=== PATIENT | female | born 1955 | race Hispanic/Latino ===

== ENCOUNTER 2019-02-12 06:54 | Observation (INO) | payer MEDICARE ==
[2019-02-06 11:32] LABS: BASOPHILS # (AUTO) 0.1 (0.0-0.1); EOSINOPHILS # (AUTO) 0.9 (0.0-0.4); EOSINOPHILS % 12.6 % (0.0-6.0); HEMATOCRIT 39.6 % (34.2-44.1); HEMOGLOBIN 12.6 g/dL (12.0-16.0); LYMPHOCYTES % 27.5 % (18.0-39.1); MEAN CORPUSCULAR HEMOGLOBIN 26.5 pg (28-32); MEAN CORPUSCULAR HGB CONC 31.8 g/dL (31-35); MEAN CORPUSCULAR VOLUME 83.4 fL (81-99); MONOCYTES # (AUTO) 0.9 (0.2-0.8); MONOCYTES % 11.9 % (4.4-11.3); NEUTROPHILS # (AUTO) 3.3 (2.1-6.9); NEUTROPHILS % 46.4 % (38.7-80.0); PLATELET COUNT 322 x10e3/uL (140-360); RED BLOOD COUNT 4.75 x10e6/uL (3.6-5.1); RED CELL DISTRIBUTION WIDTH 13.8 % (11.7-14.4)
[2019-02-06 11:55] LABS: ANION GAP 11.8 mmol/L (8-16); BLOOD UREA NITROGEN 19 mg/dL (7-26); BUN/CREATININE RATIO 31 (6-25); CALCIUM 9.1 mg/dL (8.4-10.2); CARBON DIOXIDE 27 mmol/L (22-29); CHLORIDE 104 mmol/L (98-107); CREATININE, SERUM 0.61 mg/dL (0.57-1.11); EST GLOMERULAR FILTRATION RATE > 60 ML/MIN (60-); GLUCOSE 85 mg/dL (74-118); POTASSIUM 3.8 mmol/L (3.5-5.1); SODIUM 139 mmol/L (136-145)
--- NOTE | 2019-02-06 13:05 | Diagnostic Imaging Report ---
EXAMINATION: CHEST 2 VIEWS INDICATION: Pre-operative COMPARISON: None FINDINGS: TUBES and LINES: None. LUNGS: The lungs are well-inflated. Mild patchy opacity in the retrocardiac region may represent superimposition of hiatal hernia. PLEURA: No pleural effusion or pneumothorax. HEART AND MEDIASTINUM: The cardiomediastinal silhouette is normal in size and contour. BONES AND SOFT TISSUES: No acute fracture or dislocation. UPPER ABDOMEN: No free air under the diaphragm. Hiatal hernia. IMPRESSION: No focal consolidation or pulmonary edema. Patchy opacity in the left retrocardiac area most likely represents superimposition of hiatal hernia. Signed by: Gilberto Joyner MD on 02/06/2019 1:02 PM
[~2019-02-12] VITALS: Ht 157.5 cm; Wt 57.2 kg
[~2019-02-12 06:54] MED LIST: ALENDRONATE SOD70 MG PO; ATENOLOL50 MG PO; CETIRIZINE HCL5 M1 PO; GABAPENTIN300 MG PO; HYDROCHLOROTHIA25 MG PO; METHOTREXATE2.5 MG PO; OMEPRAZOLE20 MG PO; PREDNISONE5 MG PO; SERTRALINE HCL50 MG PO; VITAMIN D250000 UNIT PO
--- OUTSIDE RECORDS SUMMARY | 2019-02-12 06:57 | XMS REPORT | Summary of Care ---
Author Author [facility] General Surgery [facility] Organization [facility] General Surgery [facility] Address Unknown Phone Unavailable Encounter HQ Encntr_alias(FIN) [id number] Date(s): 01/10/19 - 01/10/19 [facility] General Surgery [facility] [address] [place] [address]- [phone] Attending Physician: Norberto Monet MD Vital Signs No data available for this section Problem List No data available for this section Allergies, Adverse Reactions, Alerts No data available for this section Medications No data available for this section Results No data available for this section Immunizations No data available for this section Procedures No data available for this section Social History No data available for this section Assessment and Plan No data available for this section
--- OUTSIDE RECORDS SUMMARY | 2019-02-12 06:57 | XMS REPORT | Summary of Care ---
Author Author [facility] Organization [facility] Address Unknown Phone Unavailable Encounter HQ Encntr_alias(FIN) [id number] Date(s): 11/30/18 - 11/30/18 [facility] [address] [place] [address]- Discharge Disposition: Home or Self Care Attending Physician: Jose E Silva MD Referring Physician: Jose E Silva MD Vital Signs No data available for [...]
--- OUTSIDE RECORDS SUMMARY | 2019-02-12 06:57 | XMS REPORT | Continuity of Care Document ---
Author Author [facility] Organization [facility] Address Unknown Phone Unavailable Care Team Providers Care Cabana Attendant Name Role Phone [employer] Unavailable Unavailable Problems Problem Status Onset Date Classification Date Reported Comments Source Z12.31 ENCOUNTER FOR SCREENING MAMMOGRAM Active 11/21/2018 [facility] Essential hypertension Active Problem 12/20/2018 Elvis Oden Rheumatoid arthritis involving multiple sites, unspecified rheumatoid factor presence Active Diagnosis 12/20/2018 Elvis Oden Right foot pain Active Diagnosis 09/04/2018 Elvis Oden Encounter to establish care Active Diagnosis 09/04/2018 Elvis Oden Osteoporosis screening Active Diagnosis 09/04/2018 Elvis Oden Frequent urination Active Diagnosis 09/04/2018 Elvis Oden Breast cancer screening Active Diagnosis 09/04/2018 Elvis Oden Dizziness Active Diagnosis 12/20/2018 Elvis Oden Age-related osteoporosis with current pathological fracture with routine healing, subsequent encounter Active Diagnosis 12/20/2018 Elvis Oden Screen for colon cancer Active Problem 12/20/2018 Elvis Oden Gastroesophageal reflux disease without esophagitis Active Problem 12/20/2018 Elvis Oden Age-related osteoporosis without current pathological fracture Active Problem 12/20/2018 Elvis Oden Screening for breast cancer Active Problem 12/20/2018 Elvis Oden Influenza A Active Diagnosis 10/31/2018 Elvis Oden Acute cystitis without hematuria Active Diagnosis 09/14/2018 Elvis Oden Medications Medication Details Route Status Patient Instructions Ordering Provider Order Date Source Alendronate Sodium 1 tablet Orally Active 70 MG Orally Once a week [facility] 05/18/2019 Elvis Oden Methotrexate 8 tablets Orally Active 2.5 MG Orally Weekly [facility] Elvis Oden Iron not defined NA Active [facility] Omeprazole 2 capsule Orally Active 20 MG Orally Once a day [facility] Elvis Jeffrey Atenolol 1 tablet Orally Active 50 MG Orally Once a day [facility] Ibuprofen 1 tablet with food or milk as needed Orally Active 800 MG Orally every 8 hrs as needed for pain [facility] Folic Acid 2 tablet Orally Active 1 MG Orally Once a day [facility] Sertraline HCl 1 tablet Orally Active 50 MG Orally Once a day [facility] Hydrochlorothiazide 1 tablet in the morning Orally Active 25 MG Orally Once a day [facility] PredniSONE 1 tablet Orally Active 5 MG Orally Every other day [facility] Benzonatate 1 capsule Orally Active 200 MG Orally Three times a day [facility] Ciprofloxacin HCl 1 tablet Orally Active 500 MG Orally Twice a day [facility] Tamiflu 1 capsule Orally Active 75 MG Orally Twice a day [facility] Alendronate Sodium 1 tablet Orally Active 70 MG Orally Once a week [facility] PredniSONE 1 tablet Orally Active 5 MG Orally Every other day [facility] Folic Acid 2 tablet Orally Active 1 MG Orally Once a day [facility] Omeprazole 2 capsule Orally Active 20 MG Orally Once a day [facility] Methotrexate 8 tablets Orally Active 2.5 MG Orally Weekly [facility] Alendronate Sodium 1 tablet Orally Active 70 MG Orally Once a week [facility] Ibuprofen 1 tablet with food or milk as needed Orally Active 800 MG Orally every 8 hrs as needed for pain [facility] Allergies, Adverse Reactions, Alerts Substance Category Reaction Severity Reaction type Status Date Reported Comments Source PNC Adverse Reaction Info Not Available Adverse Reaction Active 12/12/2018 [facility] Immunizations No Data Provided for This Section Results No Data Provided for This Section Pathology Reports No Data Provided for This Section Diagnostic Reports Report Value Date Source Breast Mammo Scrn JULES incl CAD MA BILATERAL DIGITAL SCREENING MAMMOGRAM WITH CAD: 11/30/2018 CLINICAL: /Routine. Current study was evaluated with a Computer Aided Detection (CAD) system. COMPARISON:Comparison is made to exams dated: 07/26/2017 mammogram, 07/25/2016 mammogram, 12/11/2014 mammogram, and 06/25/2013 mammogram. TECHNIQUE: Mammographic views were obtained using digital acquisition. [employer] Version 1.3 was utilized for computer aided detection. FINDINGS: The tissue of both breasts is heterogeneously dense, which could obscure detection of small masses. There are stable benign appearing densities in both breasts. No significant masses, calcifications, or other findings are seen in either breast. There has been no significant interval change. IMPRESSION: BENIGN RECOMMENDATION:There is no mammographic evidence of malignancy. A 1 year screening mammogram is recommended.(12/01/2019) This exam was interpreted at [id number] for [facility] Breast [place]. Carlyn Davis M.D. ap/penrad:12/11/2018 10:36:00 Robot Technician(s): Char Wagner, [facility] letter sent: BI-RADS 1/2 Dense Mammogram BI-RADS: 2 Benign 11/30/2018 [facility] Bone Density Scan Study: Bone Density Scan Clinical Indication: Osteoporosis screening; Images of the axial lumbar spine and left hip have been performed using [email or web address] Discovery SL scanner. COMPARISON: None FINDINGS: The left hip bone mineral density is 92% of the peak reference bone mass with a T-score of -0.5. Left hip BMD is 0.889 g/cm2. Left femoral neck BMD is 0.727 g/cm2 and T-score of -1.2. The axial lumbar bone mineral density is 88% of the peak reference bone mass with a T-score of -1.2. Axial lumbar average BMD is 0.918 g/cm2. 10 year fracture risk without prior fracture with prior fracture Major osteoporotic fracture 4.4% 7.4% Hip fracture 0.3% 0.6% IMPRESSION: 1. Osteopenia of the left femoral neck. 2. Normal bone mineral density of the total left hip. 3. Osteopenia of the lumbar spine. The World Health Organization has established that OSTEOPOROSIS occurs at -2.5 or more standard deviations (SD) below peak bone mass (T-score on the Hologic report). OSTEOPENIA (low bone mass) occurs at greater than -1.0 standard deviations to -2.5 standard deviations below peak bone mass. SL: [id number] 11/30/2018 [facility] Consultation Notes No Data Provided for This Section Discharge Summaries No Data Provided for This Section History and Physicals No Data Provided for This Section Vital Signs Vital Sign Value Date Comments Source Weight 124.5 12/12/2018 Enayet Rahim Height 61 12/12/2018 Enayet Rahim Temperature Oral (F) 98.0 F 12/12/2018 Enayet Rahim Diastolic (mm Hg) 70 12/12/2018 Enayet Rahim Systolic (mm Hg) 116 12/12/2018 Enayet Rahim Weight 123 10/26/2018 Enayet Rahim Height 61 10/26/2018 Enayet Rahim Temperature Oral (F) 99.4 F 10/26/2018 Enayet Rahim Diastolic (mm Hg) 85 10/26/2018 Enayet Rahim Systolic (mm Hg) 113 10/26/2018 Enayet Rahim Weight 128 09/06/2018 Enayet Rahim Height 61 09/06/2018 Enayet Rahim Temperature Oral (F) 98.3 F 09/06/2018 Enayet Rahim Diastolic (mm Hg) 79 09/06/2018 Enayet Rahim Systolic (mm Hg) 121 09/06/2018 Enayet Rahim Weight 127 08/30/2018 Enayet Rahim Height 61 08/30/2018 Enayet Rahim Temperature Oral (F) 98.5 F 08/30/2018 Enayet Rahim Diastolic (mm Hg) 73 08/30/2018 Enayet Rahim Systolic (mm Hg) 130 08/30/2018 Enayet Rahim Encounters Location Location Details Encounter Type Encounter Number Reason For Visit Attending Provider ADM Date DC Date Status Source [facility] Outpatient [id number] Jose E Silva 11/30/2018 12/01/2018 [facility] Outpatient [id number] Norberto Monet 01/10/[address] [facility] General Surgery [facility] Ambulatory Pre-Reg [id number] Thornton Tierney 01/10/2019 01/10/2019 [facility] Procedures No Data Provided for This Section Assessment and Plan No Data Provided for This Section Plan of Care No Data Provided for This Section Social History Social History Date Source No data available for this section 01/10/2019 [facility] No data available for this section 12/01/2018 [facility] Family History No Data Provided for This Section Advance Directives No Data Provided for This Section Functional Status No Data Provided for This Section
--- OUTSIDE RECORDS SUMMARY | 2019-02-12 06:57 | XMS REPORT ---
Author Author Jose E iSlva Organization [employer] Address Unknown Phone Unavailable Care Team Providers Care Can Piler Name Role Phone Jose E Silva CP Unavailable Allergies No Known Allergies Problems Problem Type Condition Code Onset Dates Condition Status Problem Essential hypertension I10 Active Problem Rheumatoid arthritis involving multiple sites, unspecified rheumatoid factor presence M06.9 Active Medications No Known Medications Results No Known Results Summary Purpose [employer] Submission
--- OUTSIDE RECORDS SUMMARY | 2019-02-12 06:57 | XMS REPORT ---
Author Author Jose E Silva Organization [employer] Address Unknown Phone Unavailable Care Team Providers Care Application Systems Architect Name Role Phone Jose E Silva CP Unavailable Allergies, Adverse Reactions, Alerts Substance Reaction Event Type PNC Info Not Available Non Drug Allergy Problems Problem Type Condition Code Onset Dates Condition Status Problem Essential hypertension I10 Active Problem Rheumatoid arthritis involving multiple sites, unspecified rheumatoid factor presence M06.9 Active Assessment Influenza A J10.1 Active Medications Medication Code System Code Instructions Start Date End Date Status Dosage Hydrochlorothiazide [facility] 49694721721 25 MG Orally Once a day Active 1 tablet in the morning PredniSONE ND 87666464629 5 MG Orally Every other day Active [address] [facility] 50273261912 200 MG Orally Three times a day Active [address] [facility] 46015970840 800 MG Orally every 8 hrs as needed for pain Active 1 tablet with food or milk as needed Folic Acid ND 59203915462 1 MG Orally Once a day Active 2 tablet Omeprazole ND 81238688187 20 MG Orally Once a day Active 2 capsule Methotrexate ND 14036900791 2.5 MG Orally Weekly Active 8 tablets Sertraline HCl [facility] 42020108400 50 MG Orally Once a day Active 1 tablet Ciprofloxacin HCl [facility] 80312817629 500 MG Orally Twice a day Active [address] [facility] 24164497198 75 MG Orally Twice a day Active 1 capsule Alendronate Sodium ND 70440543851 70 MG Orally Once a week Active [address] [facility] [address]-83 Active not defined Vital Signs Date/Time: October 26, 2018 BMI 23.24 Index Weight 123 lbs Height 61 in Temperature 99.4 F Blood Pressure Diastolic 85 mm Hg Blood Pressure Systolic 113 mm Hg Results No Known Results Summary Purpose [employer] Submission
--- OUTSIDE RECORDS SUMMARY | 2019-02-12 06:57 | XMS REPORT ---
Author Author Jose E Silva Organization [employer] Address Unknown Phone Unavailable Care Team Providers Care Customer Operations Intern Name Role Phone Jose E Silva CP Unavailable Allergies, Adverse Reactions, Alerts Substance Reaction Event Type PNC Info Not Available Non Drug Allergy Problems Problem Type Condition Code Onset Dates Condition Status Assessment Dizziness R42 Active Assessment Age-related osteoporosis with current pathological fracture with routine healing, subsequent encounter M80.00XD Active Assessment Rheumatoid arthritis involving multiple sites, unspecified rheumatoid factor presence M06.9 Active Problem Screen for colon cancer Z12.11 Active Problem Gastroesophageal reflux disease without esophagitis K21.9 Active Problem Age-related osteoporosis without current pathological fracture M81.0 Active Problem Essential hypertension I10 Active Problem Screening for breast cancer Z12.31 Active Problem Rheumatoid arthritis involving multiple sites, unspecified rheumatoid factor presence M06.9 Active Medications Medication Code System Code Instructions Start Date End Date Status Dosage Methotrexate [facility] 63425746569 2.5 MG Orally Weekly Active 8 tablets Iron [facility] [address]-29 Active not defined Omeprazole ND 35837142506 20 MG Orally Once a day Active 2 capsule Atenolol ND 14740805603 50 MG Orally Once a day Active 1 tablet Ibuprofen ND 47822268295 800 MG Orally every 8 hrs as needed for pain Active 1 tablet with food or milk as needed Folic Acid ND 86683701366 1 MG Orally Once a day Active 2 tablet Sertraline HCl ND 54759109914 50 MG Orally Once a day Active 1 tablet Hydrochlorothiazide ND 29256824664 25 MG Orally Once a day Active 1 tablet in the morning Alendronate Sodium ND 54585678954 70 MG Orally Once a week May 18, 2019 Active 1 tablet PredniSONE ND 05314275414 5 MG Orally Every other day Active 1 tablet Vital Signs Date/Time: December 12, 2018 BMI 23.52 Index Weight 124.5 lbs Height 61 in Temperature 98.0 F Blood Pressure Diastolic 70 mm Hg Blood Pressure Systolic 116 mm Hg Results No Known Results Summary Purpose [employer] Submission
--- OUTSIDE RECORDS SUMMARY | 2019-02-12 06:57 | XMS REPORT ---
Author Author Jose E Silva Organization [employer] Address Unknown Phone Unavailable Care Team Providers Care Bundle Cutter Name Role Phone Jose E Silva CP Unavailable Allergies, Adverse Reactions, Alerts Substance Reaction Event Type PNC Info Not Available Non Drug Allergy Problems Problem Type Condition Code Onset Dates Condition Status Problem Essential hypertension I10 Active Problem Rheumatoid arthritis involving multiple sites, unspecified rheumatoid factor presence M06.9 Active Assessment Acute cystitis without hematuria N30.00 Active Assessment Rheumatoid arthritis involving multiple sites, unspecified rheumatoid factor presence M06.9 Active Medications Medication Code System Code Instructions Start Date End Date Status Dosage Hydrochlorothiazide [facility] 86869980933 25 MG Orally Once a day Active 1 tablet in the morning PredniSONE [facility] [address]-37 5 MG Orally Every other day Active 1 tablet Folic Acid [facility] [address]-21 1 MG Orally Once a day Active 2 tablet Omeprazole [facility] [address]-23 20 MG Orally Once a day Active 2 capsule Methotrexate [facility] [address]-13 2.5 MG Orally Weekly Active 8 tablets Iron [facility] [address]-35 Active not defined Ciprofloxacin HCl [facility] 02399162879 500 MG Orally Twice a day Active 1 tablet Alendronate Sodium [facility] [address]-51 70 MG Orally Once a week Active 1 tablet Ibuprofen [facility] [address]-99 800 MG Orally every 8 hrs as needed for pain Active 1 tablet with food or milk as needed Sertraline HCl [facility] 10482432187 50 MG Orally Once a day Active 1 tablet Vital Signs Date/Time: Sep 06, 2018 BMI 24.18 Index Weight 128 lbs Height 61 in Temperature 98.3 F Blood Pressure Diastolic 79 mm Hg Blood Pressure Systolic 121 mm Hg Results Name Result Date Reference Range Unit Abnormality Flag CULTURE, URINE, ROUTINE ----CULTURE, URINE, ROUTINE SEE NOTE [id number] Summary Purpose [employer] Submission
--- OUTSIDE RECORDS SUMMARY | 2019-02-12 06:57 | XMS REPORT ---
Author Author Jose E Silva Organization [employer] Address Unknown Phone Unavailable Care Team Providers Care Industrial Plant Custodian Name Role Phone Jose E Silva CP Unavailable Allergies, Adverse Reactions, Alerts Substance Reaction Event Type PNC Info Not Available Non Drug Allergy Problems Problem Type Condition Code Onset Dates Condition Status Assessment Right foot pain M79.671 Active Assessment Encounter to establish care Z76.89 Active Problem Essential hypertension I10 Active Assessment Osteoporosis screening Z13.820 Active Assessment Frequent urination R35.0 Active Assessment Essential hypertension I10 Active Assessment Breast cancer screening Z12.31 Active Medications No Known Medications Vital Signs Date/Time: Aug 30, 2018 BMI 23.99 Index Weight 127 lbs Height 61 in Temperature 98.5 F Blood Pressure Diastolic 73 mm Hg Blood Pressure Systolic 130 mm Hg Results No Known Results Summary Purpose [employer] Submission
--- OUTSIDE RECORDS SUMMARY | 2019-02-12 06:58 | XMS REPORT ---
Author [facility] Address Unknown Phone Unavailable Care Team Providers Care Legal Research Analyst Name Role Phone JOYCE LOYA Unavailable Unavailable Payers Payer Name Policy Type Policy Number Effective Date Expiration Date Problems This patient has no known problems. Allergies, Adverse Reactions, Alerts Allergy Name Allergy Type Status Severity Reaction(s) Onset Date Inactive Date Treating Clinician Comments Penicillins DA Active U 2018-12-11 00:00:00 Penicillins DA Active U 2009-10-23 00:00:00 Medications This patient has no known medications. Encounters Start Date/Time End Date/Time Encounter Type Admission Type Attending Clinicians [facility] Facility Care Department Encounter ID 2018-11-30 09:50:00 2018-11-30 09:50:00 Outpatient [facility] MED [id number] 2018-10-18 00:00:00 2018-10-18 00:00:00 Outpatient [facility] [id number] 2018-09-05 00:00:00 2018-09-05 00:00:00 Outpatient [facility] [id number] 2018-08-24 00:00:00 2018-08-24 00:00:00 Outpatient [facility] [id number] 2018-08-24 00:00:00 2018-08-24 00:00:00 Outpatient [facility] [id number] 2018-08-22 00:00:00 2018-08-22 00:00:00 Outpatient [facility] [id number] 2018-07-26 00:00:00 2018-07-26 00:00:00 Outpatient [facility] [id number] 2018-07-19 00:00:00 2018-07-19 00:00:00 Outpatient [facility] [id number] 2018-07-06 00:00:00 2018-07-06 00:00:00 Outpatient [facility] [id number] 2018-06-29 09:20:55 2018-06-29 09:20:55 Outpatient [facility] [id number] 2018-06-29 08:21:23 2018-06-29 08:21:23 Outpatient [facility] [id number] 2018-06-21 11:43:24 2018-06-21 11:43:24 Outpatient [facility] [id number] 2018-06-21 11:41:41 2018-06-21 11:41:41 Outpatient [facility] [id number] 2018-06-21 09:24:39 2018-06-21 09:24:39 Outpatient [facility] [id number] 2018-06-21 00:00:00 2018-06-21 00:00:00 Outpatient [facility] [id number] 2018-06-19 09:04:14 2018-06-19 09:04:14 Outpatient [facility] [id number] 2018-05-29 09:02:44 2018-05-29 09:02:44 Outpatient [facility] [id number] 2018-05-28 10:41:35 2018-05-28 10:41:35 Outpatient [facility] [id number] 2018-05-28 10:35:08 2018-05-28 10:35:08 Outpatient [facility] [id number] 2018-05-28 00:00:00 2018-05-28 00:00:00 Outpatient [facility] [id number] 2018-05-28 00:00:00 2018-05-28 00:00:00 Outpatient [facility] [id number] 2018-05-25 09:20:00 2018-05-25 09:20:00 Outpatient [facility] [id number] 2018-05-17 08:59:22 2018-05-17 08:59:22 Outpatient [facility] [id number] 2018-05-10 00:00:00 2018-05-10 00:00:00 Outpatient [facility] [id number] 2018-05-08 09:37:27 2018-05-08 09:37:27 Outpatient [facility] [id number] 2018-05-04 15:46:06 2018-05-04 15:46:06 Outpatient [facility] [id number] 2018-05-03 00:00:00 2018-05-03 00:00:00 Outpatient [facility] [id number] 2018-05-03 00:00:00 2018-05-03 00:00:00 Outpatient [facility] [id number] 2018-05-02 00:00:00 2018-05-02 00:00:00 Outpatient [facility] [id number] 2018-05-02 00:00:00 2018-05-02 00:00:00 Outpatient [facility] [id number] 2018-04-30 00:00:00 2018-04-30 00:00:00 Outpatient [facility] [id number] 2018-04-23 10:29:06 2018-04-23 10:29:06 Outpatient [facility] [id number] 2018-04-23 10:17:01 2018-04-23 10:17:01 Outpatient [facility] [id number] 2018-04-19 00:00:00 2018-04-19 00:00:00 Outpatient [facility] [id number] 2018-04-17 00:00:00 2018-04-17 00:00:00 Outpatient [facility] [id number] 2018-03-26 14:37:39 2018-03-26 14:37:39 Outpatient [facility] [id number] 2018-03-26 14:28:11 2018-03-26 14:28:11 Outpatient [facility] [id number] 2018-03-26 00:00:00 2018-03-26 00:00:00 Outpatient [facility] [id number] 2018-03-26 00:00:00 2018-03-26 00:00:00 Outpatient [facility] [id number] 2018-03-26 00:00:00 2018-03-26 00:00:00 Outpatient [facility] [id number] 2018-03-12 00:00:00 2018-03-12 00:00:00 Outpatient [facility] [id number] 2018-02-27 00:00:00 2018-02-27 00:00:00 Outpatient [facility] [id number] 2018-02-23 09:35:37 2018-02-23 09:35:37 Outpatient [facility] [id number] 2018-02-22 15:15:16 2018-02-22 15:15:16 Outpatient [facility] [id number] 2018-02-22 11:56:40 2018-02-22 11:56:40 Outpatient [facility] [id number] 2018-02-22 11:03:55 2018-02-22 11:03:55 Outpatient [facility] [id number] 2018-02-22 10:27:35 2018-02-22 10:27:35 Outpatient [facility] [id number] 2018-02-22 08:02:10 2018-02-22 08:02:10 Outpatient [facility] [id number] 2018-02-21 13:28:24 2018-02-21 13:28:24 Outpatient [facility] [id number] 2018-02-21 11:34:13 2018-02-21 11:34:13 Outpatient [facility] [id number] 2018-02-16 00:00:00 2018-02-16 00:00:00 Outpatient [facility] [id number] 2018-02-15 15:10:49 2018-02-15 15:10:49 Outpatient [facility] [id number] 2018-02-15 14:27:55 2018-02-15 14:27:55 Outpatient [facility] [id number] 2018-02-15 00:00:00 2018-02-15 00:00:00 Outpatient [facility] [id number] 2018-02-14 00:00:00 2018-02-14 00:00:00 Outpatient [facility] [id number] 2018-01-15 16:49:36 2018-01-15 16:49:36 Outpatient [facility] [id number] 2017-12-07 11:03:07 2017-12-07 11:03:07 Outpatient [facility] [id number] 2017-12-05 00:00:00 2017-12-05 00:00:00 Outpatient [facility] [id number] 2017-12-04 00:00:00 2017-12-04 00:00:00 Outpatient [facility] [id number] 2017-10-19 17:00:19 2017-10-19 17:00:19 Outpatient [facility] [id number] 2017-10-19 12:14:26 2017-10-19 12:14:26 Outpatient [facility] [id number] 2017-10-19 09:27:57 2017-10-19 09:27:57 Outpatient [facility] [id number] 2017-10-19 00:00:00 2017-10-19 00:00:00 Outpatient [facility] [id number] 2017-08-10 09:13:35 2017-08-10 09:13:35 Outpatient [facility] [id number] 2017-08-10 00:00:00 2017-08-10 00:00:00 Outpatient [facility] [id number] 2017-08-01 00:00:00 2017-08-01 00:00:00 Outpatient [facility] [id number] 2017-07-26 09:12:59 2017-07-26 09:12:59 Outpatient [facility] [id number] 2017-07-24 00:00:00 2017-07-24 00:00:00 Outpatient [facility] [id number] 2017-07-07 08:39:04 2017-07-07 08:39:04 Outpatient [facility] [id number] 2017-06-20 09:36:54 2017-06-20 09:36:54 Outpatient [facility] [id number] 2017-06-12 00:00:00 2017-06-12 00:00:00 Outpatient [facility] [id number] 2017-06-05 11:32:36 2017-06-05 11:32:36 Outpatient [facility] [id number] 2017-06-02 08:47:39 2017-06-02 08:47:39 Outpatient [facility] [id number] 2017-06-01 08:50:47 2017-06-01 08:50:47 Outpatient [facility] [id number] 2017-05-24 10:57:26 2017-05-24 10:57:26 Outpatient [facility] [id number] 2017-04-22 16:09:37 2017-04-22 16:09:37 Outpatient [facility] [id number] 2017-04-11 11:28:05 2017-04-11 11:28:05 Outpatient [facility] [id number] 2017-04-04 00:00:00 2017-04-04 00:00:00 Outpatient [facility] [id number] 2017-03-30 00:00:00 2017-03-30 00:00:00 Outpatient [facility] [id number] 2017-03-28 00:00:00 2017-03-28 00:00:00 Outpatient [facility] [id number] 2017-03-23 09:13:01 2017-03-23 09:13:01 Outpatient [facility] [id number] 2017-03-21 00:00:00 2017-03-21 00:00:00 Outpatient [facility] [id number] 2017-03-21 00:00:00 2017-03-21 00:00:00 Outpatient [facility] [id number] 2017-01-07 09:46:15 2017-01-07 09:46:15 Outpatient [facility] [id number] 2017-01-05 00:00:00 2017-01-05 00:00:00 Outpatient [facility] [id number] 2016-12-27 09:22:02 2016-12-27 09:22:02 Outpatient [facility] [id number] 2016-12-20 15:34:13 2016-12-20 15:34:13 Outpatient [facility] [id number] 2016-12-20 14:08:54 2016-12-20 14:08:54 Outpatient [facility] [id number] 2016-12-20 13:05:38 2016-12-20 13:05:38 Outpatient [facility] [id number] 2016-12-16 09:26:37 2016-12-16 09:26:37 Outpatient [facility] [id number] 2016-12-09 08:58:04 2016-12-09 08:58:04 Outpatient [facility] [id number] Results Test Description Test Time Test Comments Text Results Atomic Results Result Comments CHEST 2 VIEWS 2019-02-06 13:00:00 [place] [address] Patient Name: RAINE CEE MR #: [id number] : 1955 Age/Sex: 64/F Req #: [id number] Adm Physician: Ordered by: JOYCE LOYA MD Report #: [id number] Location: OR Room/Bed: Procedure: [id number] DX/CHEST 2 VIEWS Exam Date: 02/06/19 Exam Time: 1120 REPORT STATUS: Signed EXAMINATION: CHEST 2 VIEWS INDICATION: Pre-operative COMPARISON: None FINDINGS: TUBES and LINES: None. LUNGS: The lungs are well-inflated. Mild patchy opacity in the retrocardiac region may represent superimposition of hiatal hernia. PLEURA: No pleural effusion or pneumothorax. HEART AND MEDIASTINUM: The cardiomediastinal silhouette is normal in size and contour. BONES AND SOFT TISSUES: No acute fracture or dislocation. UPPER ABDOMEN: No free air under the diaphragm. Hiatal hernia. IMPRESSION: No focal consolidation or pulmonary edema. Patchy opacity in the left retrocardiac area most likely represents superimposition of hiatal hernia. Signed by: Lorie German MD on 02/06/2019 1:02 PM Dictated By: LORIE EGRMAN MD 1302 Transcribed By: ROSARIO on 02/06/19 1302 COPY TO: JOYCE LOYA MD - US RETROPERITONEAL COM 2019-01-15 09:37:00 Name: RAINE CEE [facility] : 1955 Age/S: 64 / F [address] [place] [address] Bl Unit #: [id number] Loc: [place] [address] Phys: Maggie Kurtz DO Acct: [id number] Dis Date: Status: REG CLI PHONE #: [phone] Exam Date: 01/15/2019 0812 FAX #: [phone] Reason: R31.9 HEMATURIA EXAMS: CPT CODE: [id number] US RETROPERITONEAL COM [id number] EXAM: US RETROPERITONEAL COMPLETE DATE: 01/15/2019 7:38 AM : 1955; Age: 64 years y/o Female INDICATION: R31.9 HEMATURIA COMPARISON: None. TECHNIQUE: Multiplanar grayscale and color Doppler ultrasound of the kidneys, aorta, IVC and urinary bladder. FINDINGS: Right kidney: Hydronephrosis: None. Size: 10.2 cm. Echogenicity: Normal. Calculi: None. Cysts: None. Masses: None. Left kidney: Hydronephrosis: None. Size: 10.2 cm. Echogenicity: Normal. Calculi: None. Cysts: None. Masses: None. Abdominal aorta and bifurcation: Obscured by bowel gas.. Inferior vena cava: Normal. Bladder: Minimal wall thickening is seen. IMPRESSION: No ultrasound evidence of nephrolithiasis or hydronephrosis. Minimal bladder wall thickening, which may be secondary to incomplete distention or cystitis SL: [id number] PAGE 1 Signed Report (CONTINUED) Name: RAINE CEE [facility] : 1955 Age/S: 64 / F [address] [place] [address] Unit #: [id number] Loc: [place] [address] Phys: Mgagie Kurtz DO Acct: [id number] Dis Date: Status: REG CLI PHONE #: [phone] Exam Date: 01/15/2019811 FAX #: [phone] Reason: R31.9 HEMATURIA EXAMS: CPT CODE: [id number] [facility] COM 02450 <Continued> at 0937 Reported and signed by: Yarelis Cordero D.O. CC: Maggie Kurtz DO Technologist: Guillermina Collins RDMS(Yeimi)(OB) Trnscb Date/Time: 01/15/2019 (0937) tJOSE [email or web address] Orig Print D/T: S: 01/15/2019 (0941) Probe: PAGE 2 Signed Report SURGICAL SPECIMENS 2018-12-18 13:53:00 RUN DATE: 12/18/18 [facility] *LIVE* PAGE 1 RUN TIME: 1353 Specimen Inquiry RUN USER: INTERFACE PATIENT: RAINE CEE LOC: MARTHA #: [id number] AGE/SX: 63/F ROOM: RE12/14/18REG DR: Jimbo Cueva MD : 53 BED: DIS: STATUS: [facility] TLOC: SPEC #: [id number] RECD: 12/14/18 STATUS: [facility] #: [id number] JINNY: 12/14/[address] [facility] DR: Jimbo Cueva MD ENTERED: 12/18/18 SP TYPE: SURG SPEC OTHR DR: No Primary or Family PhysicianORDERED: GM LEVEL 4 CODES: [id number] - ESOPHAGUS, NOS [id number] - STOMACH, NOS COPIES TO: No Primary or Family Physician Jimbo Cueva MD [address] [place] [address] PROCEDURES: GM LEVEL 4 (Incomplete) TISSUES: 1. STOMACH, NOS - Stomach, bx. 2. ESOPHAGUS, NOS - Esophagus, bx. FINAL DIAGNOSIS Stomach, bx.: Reactive chemical gastropathy, no Helicobacter organisms identified. Esophagus, bx.: Changes consistent with reflux esophagitis, no intestinal metaplasia identified. GROSS AND MICROSCOPIC GROSS EXAMINATION: Received in formalin labeled gastric biopsy are 2 sevilla tissue fragments measuring up to 0.3 cm (A). Received in formalin labeled esophagus biopsy are 2 sevilla tissue fragments measuring up to 0.2 cm (B). MICROSCOPIC EXAMINATION: Sections of the gastric biopsy reveal fundic and fundic type gastric mucosa. The non- fundic type gastric mucosa shows elongation of the glands with some coiling. The fundic gland area shows a lymphoid aggregate. No intestinal metaplasia identified with Alcian blue-PAS staining. No Helicobacter organisms identified by immunostaining. Sections of the esophagus reveal squamous mucosa with acanthosis, widening of the basal layer and elongation of vascular papillae. Intestinal metaplasia is not identified by Alcian blue-PAS staining. CONTINUED ON NEXT PAGE RUN DATE: 12/18/18 [facility] *LIVE* PAGE 2 RUN TIME: 1353 Specimen Inquiry RUN USER: INTERFACE SPEC #: [id number] PATIENT: RAINE CEE #[id number] (Continued) - GROSS AND MICROSCOPIC (Continued) (When special stains have been reviewed, the appropriate positive/negative controls have been reviewed and are appropriately positive/negative). POST-OP DIAGNOSIS Irregular Z-line, large hiatal hernia PRE-OP DIAGNOSIS Screening for colon cancer, chronic constipation, GERD, epigastric pain Signed SIGNATURE ON Joyce Askew 12/18/18 1353 END OF REPORT BASIC METABOLIC PANEL 2018-12-14 08:48:00 SODIUM (test code=NA) 143 mEq/L 134-147 POTASSIUM (test code=K) 3.5 mEq/L 3.4-5.0 CHLORIDE (test code=CL) 109 mEq/L 100-108 CARBON DIOXIDE (test code=CO2) 27 mEq/L 21-33 ANION GAP (test code=GAP) 11 0-20 GLUCOSE (test code=GLU) 82 mg/dL 70-110 BLOOD UREA NITROGEN (test code=BUN) 18 mg/dL 7-18 GLOMERULAR FILTRATION RATE (test code=GFR) 124.2 80-90 Units of measure=ml/min/1.73 m2 CREATININE (test code=CREAT) 0.5 mg/dL 0.6-1.3 CALCIUM (test code=CA) 8.2 mg/dL 8.0-10.5 BASIC METABOLIC [id number] 12:37:00* Test Item Value Reference Range Comments SODIUM (test code=NA) 144 mEq/L 134-147 POTASSIUM (test code=K) 4.7 mEq/L 3.4-5.0 CHLORIDE (test code=CL) 110 mEq/L 100-108 CARBON DIOXIDE (test code=CO2) 30 mEq/L 21-33 ANION GAP (test code=GAP) 9 0-20 GLUCOSE (test code=GLU) 81 mg/dL 70-110 BLOOD UREA NITROGEN (test code=BUN) 18 mg/dL 7-18 GLOMERULAR FILTRATION RATE (test code=GFR) 124.2 80-90 Units of measure=ml/min/1.73 m2 CREATININE (test code=CREAT) 0.5 mg/dL 0.6-1.3 CALCIUM (test code=CA) 8.6 mg/dL 8.0-10.5 - XR CHEST 2 [id number] 12:33:00 FAX: Jimbo Hein MD [phone] [place]: St: PRE FAX: Oly Higuera [facility] [phone] Name: RAINE CEE [facility] : 1955 Age/S: 63/F [address] [place] [address] Unit #: [id number] Loc: [place] [address] Phys: Oly HigueraP Acct: [id number] Dis Date: Status: PRE [facility] PHONE #: [phone] Exam Date: 12/11/2018 1212 FAX #: [phone] Reason: COLON CANCER SCREENING EXAMS: CPT CODE: [id number] XR CHEST 2 V 02464 CLINICAL HISTORY: COLON CANCER SCREENING COMPARISON: 09/12 2007 PA and lateral films of the chest demonstrate that heart size is normal. Lung almanzar are clear. No evidence of pneumonia or congestive failure is seen. There is evidence of retrocardiac density in middle mediastinum compatible with moderate size hiatus hernia. Regional skeletal structures are within normal limits. IMPRESSION: 1. No evidence of pneumonia or congestive failure is seen. 2. Hiatus hernia. at 2477 Reported and signed by: Laith Pendleton M.D. CC: Jimbo Cueva MD; [facility] Technologist: RT Nati(Mohsen) Trnscrd Date/Time/By: 12/11/2018 (7226) : By: [email or web address] Orig Print D/T: S: 12/11/2018 (0228) PAGE 1 Signed Report CBC W/AUTO [id number] 12:27:00* Test Item Value Reference Range Comments WHITE BLOOD CELL (test code=WBC) 7.26 x10 3/uL 4.5-11.0 RED BLOOD CELL (test code=RBC) 4.76 x10 6/uL 3.54-5.02 HEMOGLOBIN (test code=HGB) 12.8 g/dL 11.0-15.0 HEMATOCRIT (test code=HCT) 40.5 % 33.0-45.0 MEAN CELL VOLUME (test code=MCV) 85.1 fL 81.0-99.0 MEAN CELL HGB (test code=MCH) 26.9 pg 27.0-33.0 MEAN CELL HGB CONCETRATION (test code=MCHC) 31.6 g/dL 33.0-37.0 RED CELL DISTRIBUTION WIDTH CV (test code=RDW) 13.8 % 11.5-14.5 RED CELL DISTRIBUTION WIDTH SD (test code=RDW-SD) 42.8 fL 37.0-54.0 PLATELET COUNT (test code=PLT) 332 x10 3/uL 150-400 MEAN PLATELET VOLUME (test code=MPV) 10.3 fL 7.0-9.0 NEUTROPHIL % (test code=NT%) 51.0 % 56.0-77.0 IMMATURE GRANULOCYTE % (test code=IG%) 0.3 % 0.0-2.0 LYMPHOCYTE % (test code=LY%) 28.7 % 14.0-32.0 MONOCYTE % (test code=MO%) 10.2 % 4.8-9.0 EOSINOPHIL % (test code=EO%) 8.8 % 0.3-3.7 BASOPHIL % (test code=BA%) 1.0 % 0.0-2.0 NUCLEATED RBC % (test code=NRBC%) 0.0 % 0-0 NEUTROPHIL # (test code=NT#) 3.71 x10 3/uL 2.0-7.6 IMMATURE GRANULOCYTE # (test code=IG#) 0.02 x10 3/uL 0.00-0.03 LYMPHOCYTE # (test code=LY#) 2.08 x10 3/uL 1.0-3.8 MONOCYTE # (test code=MO#) 0.74 x10 3/uL 0.1-0.8 EOSINOPHIL # (test code=EO#) 0.64 x10 3/uL 0.0-0.2 BASOPHIL # (test code=BA#) 0.07 x10 3/uL 0.0-0.2 NUCLEATED RBC # (test code=NRBC#) 0.00 x10 3/uL 0.0-0.1 MANUAL DIFF REQUIRED (test code=MDIFF) NO
[2019-02-12] MEDS ORDERED: LEVOFLOXACIN 500MG/D5W 100ML 100 ML IV ONE (07:36)
[2019-02-12] MEDS ORDERED: BUPIVACAINE HCL 0.5% INJ 30 ML VIAL INJ ONE (08:13)
[2019-02-12] MEDS ORDERED: ONDANSETRON HCL INJ 2MG/ML 2ML 2 MG/ML VIAL IV PRN (10:30)
[2019-02-12] MEDS ORDERED: MORPHINE SULFATE INJ 4 MG/ML INJ 1ML IV PRN (10:30)
--- OUTSIDE RECORDS SUMMARY | 2019-02-12 10:51 | XMS REPORT | Continuity of Care Document ---
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 Name Role Phone [email or web address] Unavailable Unavailable Problems Problem Status Onset Date Classification Date Reported Comments Source Z12.31 ENCOUNTER FOR SCREENING MAMMOGRAM Active 11/21/2018 [facility] Essential hypertension Active Problem 12/20/2018 Elvis [...] Active 70 MG Orally Once a week [facility] 05/18/2019 Elvis Oden Methotrexate 8 tablets Orally Active 2.5 MG Orally Weekly [facility] Elvis Oden Iron not defined NA Active [facility] capsule Orally Active 20 MG Orally Once a day [facility] Elvis Jeffrey Atenolol 1 tablet Orally Active 50 MG Orally Once a day [facility] Ibuprofen 1 tablet with food or milk as needed Orally Active 800 MG Orally every 8 hrs as needed for pain [facility] Folic Acid 2 tablet Orally Active 1 MG Orally Once a day [facility] Sertraline HCl 1 tablet Orally Active 50 MG Orally Once a day [facility] Hydrochlorothiazide 1 tablet in the morning Orally Active 25 MG Orally Once a day [facility] PredniSONE 1 tablet Orally Active 5 MG Orally Every other day [facility] Benzonatate 1 capsule Orally Active 200 MG Orally Three times a day [facility] Ciprofloxacin HCl 1 tablet Orally Active 500 MG Orally Twice a day [facility] Tamiflu 1 capsule Orally Active 75 MG Orally Twice a day [facility] Alendronate Sodium 1 tablet Orally Active 70 MG Orally Once a week [facility] PredniSONE 1 tablet Orally Active 5 MG Orally Every other day [facility] Folic Acid 2 tablet Orally Active 1 MG Orally Once a day [facility] Omeprazole 2 capsule Orally Active 20 MG Orally Once a day [facility] Methotrexate 8 tablets Orally Active 2.5 MG Orally Weekly [facility] Alendronate Sodium 1 tablet Orally Active 70 MG Orally Once a week [facility] Ibuprofen 1 tablet with food or milk as needed Orally Active 800 MG Orally every 8 hrs as needed for pain [facility] Allergies, Adverse Reactions, Alerts Substance Category Reaction Severity Reaction type Status Date Reported Comments Source PNC Adverse Reaction Info Not Available Adverse Reaction Active 12/12/2018 [facility] Immunizations No Data Provided for This Section [...] is recommended.(12/01/2019) This exam was interpreted at [id number] for [facility] Breast Traphill. Carlyn Davis M.D. ap/penrad:12/11/2018 10:36:00 Cylinder Machine Operator(s): Char Wagner, [facility] letter sent: BI-RADS 1/2 Dense Mammogram BI-RADS: 2 Benign 11/30/2018 [facility] Bone Density Scan Study: Bone Density Scan Clinical Indication: Osteoporosis screening; Images of the axial lumbar spine and left hip have been performed using [employer] Discovery SL scanner. COMPARISON: None FINDINGS: The [...] standard deviations below peak bone mass. SL: [id number] 11/30/2018 [facility] Consultation Notes No Data Provided for [...] Provider ADM Date DC Date Status Source [facility] Outpatient [id number] Jose E Silva 11/30/2018 12/01/2018 [facility] Outpatient [id number] Norberto Monet 01/10/2019 Active [facility] General Surgery [facility] Ambulatory Pre-Reg [id number] Thornton Tierney 01/10/2019 01/10/2019 Medical Group Procedures No Data Provided for This Section Assessment and Plan No Data Provided for This Section Plan of Care No Data Provided for This Section Social History Social History Date Source No data available for this section 01/10/2019 Medical Group No data available for this section 12/01/2018 [facility] Family History No Data Provided for This Section Advance Directives No Data Provided for This Section Functional Status No Data Provided for This Section
[2019-02-12] MEDS ORDERED: FENTANYL CITRATE/PF 100MCG/2 ML INJ ONE ×2 (11:02→18:41)
[2019-02-12] MEDS ORDERED: METOCLOPRAMIDE HCL 10 MG/2ML VIAL ONE (11:46)
[2019-02-12] MEDS ORDERED: MORPHINE SULFATE INJ 4 MG/ML INJ 1ML ONE (11:51)
--- NOTE | 2019-02-12 12:10 | NUR ---
Patient arrived from PACU. She is drowsy but easily arouses to verbal stimuli. Abdomen with 5 trocar sites intact with bandaids. POC discussed. Patient instructed to call for assistance as needed and verbalized understanding. call raza within reach.
[2019-02-12 12:24] VITALS: BP 154/72
[2019-02-12 12:30] VITALS: BP 154/72
--- NOTE | 2019-02-12 12:35 | Operative Report ---
DATE OF PROCEDURE: 02/12/2019 SURGEON: Sage Rascon MD PREOPERATIVE DIAGNOSES: Gastroesophageal reflux disease, paraesophageal hiatal hernia. POSTOPERATIVE DIAGNOSES: Gastroesophageal reflux disease, paraesophageal hiatal hernia. PROCEDURES: Diagnostic laparoscopy, laparoscopic repair of paraesophageal hiatal hernia with fundoplication. 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 ANESTHESIA: General. INDICATIONS AND FINDINGS: The patient is a 64-year-old female, who has had complaints of lower chest discomfort for several years. Workup revealed a large hiatal hernia with esophagitis. Surgery based on large paraesophageal hiatal hernia with herniation of stomach and omentum into the mediastinum. TECHNIQUE: After adequate general endotracheal anesthesia with the patient in supine position, the abdomen was prepped and draped in sterile fashion with ChloraPrep solution. Approximately 3 cm above the umbilicus to the left of the midline, skin and subcutaneous tissue was infiltrated with 0.5% Marcaine. Transverse incision was made. Abdominal wall was elevated and Veress needle was introduced. Pneumoperitoneum was then created. A 10 mm trocar and cannula was then passed through this wound. Laparoscopic camera was introduced. Initial laparoscopy revealed a large hiatal hernia. Liver appeared normal. Lower abdomen appeared normal. A 10 mm trocar and cannula was placed right of the midline to the falciform ligament. A 5 mm trocar and cannula placed left to the midline of subxiphoid. A 10 mm trocar and cannula was placed in the anterior axillary line below the costal margin and a 10 mm trocar and cannula placed in the left side of the abdomen lateral to the umbilicus. These were all placed under direct vision with the left lobe of the liver elevated. The stomach was delivered from the mediastinum into the abdomen. Majority of the stomach was herniated through the hiatal hernia with large paraesophageal hiatal hernia. The lesser omentum was divided with LigaSure device. The peritoneal attachments to the right side of the hiatus were divided with LigaSure device. Right side of the esophageal hiatus was completely dissected free. The fundus of the stomach was mobilized by dividing peritoneal attachments and short gastric vessels and peritoneal attachments to the left side. The hiatus also was divided dissecting the hernia sac as these attachments were divided. The esophagus was identified and was not shortened. Vagus nerves identified and preserved. The attachments posterior to the esophagus were divided with LigaSure device. Care was taken not to injure the vagus nerve and once the esophageal hiatus had been completely delineated, esophagus was encircled with a [place] drain. The esophageal hiatus was then closed posterior to the esophagus with interrupted sutures of 0 Ethibond using 0 Ethibond Endo knots. The fundus of the stomach was then passed posterior to the esophagus. A 56-Tajik esophageal dilator was then passed. A 360 degree fundoplication was then done from the left side of the abdomen. Left side of the hiatus, esophagus and fundus of stomach were brought anteriorly and sutured taking the stomach to the wall esophagus to the stomach over distance of approximately 3 cm. This was done with interrupted sutures of 0 Ethibond. Care was taken not to injure the vagus nerves. Once the fundoplication was completed, the esophageal dilator was removed. Hemostasis was seen to be adequate. The peritoneal cavity irrigated with saline, inspected for hemostasis which was seen to be adequate. Instruments and cannulas were then removed. Pneumoperitoneum was evacuated. Wounds were then closed. Fascia in the larger trocar wound was closed with 0 Vicryl. Skin to all wounds closed with 4-0 Vicryl in subcuticular fashion. Dermabond and sterile dressing were applied to each wound. The patient tolerated the procedure well. Estimated blood loss was 25 mL. There were no complications. All counts were correct. The patient was taken to the recovery room in satisfactory condition. MD NICK Heard/MODL /[id number] cc: Hao Adorno MD
[2019-02-12 12:50] VITALS: BP 154/72
--- NOTE | 2019-02-12 13:45 | NUR ---
Visit made by the Spiritual Care Department Pastoral Visitor, Sulema Beltre. Pt sleeping soundly and no family present. Pastoral Visitor left a card describing availability of planning intern and instructions on how to contact a planning intern. RADHA HERNANDEZ Vendor Manager Spiritual Care Department O: [phone] Pager: [phone] ([phone] number calling from)
[2019-02-12] MEDS: DEXTROSE 5%/LACTATED RINGERS 1,000 ML IV SCH ×3 (14:53→22:55)
[2019-02-12 15:13] VITALS: BP 123/80
[2019-02-12] MEDS: GABAPENTIN 300 MG CAP PO SCH (16:31)
[2019-02-12] MEDS ORDERED: MIDAZOLAM HCL 2 MG/2 ML VIAL ONE (18:41)
--- NOTE | 2019-02-12 19:05 | NUR ---
RECEIVED REPORT FROM PREVIOUS NURSE. PATIENT IN BED. CALL LIGHT WITHIN REACH.
[2019-02-12] MEDS ORDERED: PROPOFOL IV EMULSION 10 MG/ML 20 ML VIAL ONE (19:19)
[2019-02-12] MEDS ORDERED: NEOSTIGMINE 5 MG/5ML SYR ONE (19:19)
[2019-02-12] MEDS ORDERED: ONDANSETRON HCL INJ 2MG/ML 2ML 2 MG/ML VIAL ONE (19:19)
[2019-02-12] MEDS ORDERED: KETOROLAC TROMETHAMINE 30 MG/ML VIAL ONE (19:19)
[2019-02-12] MEDS ORDERED: GLYCOPYRROLATE INJ 1MG/ 5 ML SYR ONE (19:19)
[2019-02-12] MEDS ORDERED: DEXAMETHASONE SOD PHOS INJ 4 MG/ML VIAL ONE (19:19)
[2019-02-12] MEDS ORDERED: ROCURONIUM BROMIDE 10 MG/ML 5ML VIAL ONE (19:19)
[2019-02-12] MEDS ORDERED: LIDOCAINE HCL 2% LOCAL INJ 5 ML SDV VIAL INJ ONE (19:19)
[2019-02-12] MEDS ORDERED: SEVOFLURANE INHAL SOLN 250 ML PEN BTL ONE (19:19)
[2019-02-12] MEDS ORDERED: EPHEDRINE SULFATE INJ 50 MG/10 ML SYR ONE (19:19)
--- NOTE | 2019-02-12 19:20 | NUR ---
Walking rounds done and report given. Call raza within reach.
[2019-02-12 20:00] VITALS: BP 130/63
[2019-02-12] MEDS: MORPHINE SULFATE INJ 4 MG/ML INJ 1ML IV PRN (20:26)
[2019-02-13] VITALS: BP 110/61
[2019-02-13 00:50] VITALS: BP 110/61
[2019-02-13] MEDS: MORPHINE SULFATE INJ 4 MG/ML INJ 1ML IV PRN (05:23)
[2019-02-13 05:26] LABS: BASOPHILS % 0.3 % (0.0-1.0); EOSINOPHILS % 0.4 % (0.0-6.0); HEMATOCRIT 33.2 % (34.2-44.1); HEMOGLOBIN 10.6 g/dL (12.0-16.0); LYMPHOCYTES # (AUTO) 1.8 (1.0-3.2); LYMPHOCYTES % 17.5 % (18.0-39.1); MEAN CORPUSCULAR HEMOGLOBIN 26.8 pg (28-32); MEAN CORPUSCULAR HGB CONC 31.9 g/dL (31-35); MEAN CORPUSCULAR VOLUME 84.1 fL (81-99); MONOCYTES # (AUTO) 1.4 (0.2-0.8); MONOCYTES % 13.5 % (4.4-11.3); NEUTROPHILS # (AUTO) 7.1 (2.1-6.9); NEUTROPHILS % 67.9 % (38.7-80.0); PLATELET COUNT 265 x10e3/uL (140-360); RED BLOOD COUNT 3.95 x10e6/uL (3.6-5.1); RED CELL DISTRIBUTION WIDTH 13.3 % (11.7-14.4)
--- NOTE | 2019-02-13 06:55 | NUR ---
Gave report to oncoming nurse. Call light within reach. Patient in bed.
--- NOTE | 2019-02-13 07:06 | NUR ---
Received patient and walking rounds complete. Patient resting in bed at this time. No signs of distress. Bed low, wheels locked, side rails x2. Call light in reach will continue to monitor patient.
[2019-02-13 07:52] VITALS: BP 151/70
[2019-02-13] MEDS: GABAPENTIN 300 MG CAP PO SCH (08:13)
[2019-02-13 08:25] VITALS: BP 151/70
[2019-02-13] MEDS ORDERED: ONDANSETRON HCL 4 MG ORAL DISINTEGRATING TAB PO PRN (08:30)
[2019-02-13] MEDS ORDERED: ERGOCALCIFEROL 50,000 UNIT CAP PO SCH (09:00)
[2019-02-13] MEDS ORDERED: PANTOPRAZOLE SOD 40 MG TABEC PO SCH ×2 (09:00)
[2019-02-13] MEDS ORDERED: SERTRALINE HCL 50 MG TAB PO SCH (09:00)
[2019-02-13] MEDS ORDERED: PREDNISONE 5 MG TAB PO SCH (09:00)
[2019-02-13] MEDS ORDERED: METHOTREXATE SOD 2.5 MG TAB PO SCH (09:00)
[2019-02-13] MEDS ORDERED: ATENOLOL 50 MG TAB PO SCH (09:00)
[2019-02-13] MEDS ORDERED: HYDROCHLOROTHIAZIDE 25 MG TAB PO SCH (09:00)
--- NOTE | 2019-02-13 09:12 | NUR ---
PATIENT A/O X3, EVEN RESPIRATIONS ON 2LNC. BOWEL SOUNDS ACTIVE, NO EDEMA. 5 TROCAR SITES ON ABDOMEN, NO DRAINAGE. SCD'S BILATERALLY. PATIENT AMBULATES WITH STANDBY ASSIST. RIGHT HAND 20 GAUGE IV WITH D5LR @ 125 CC/HR. IV INTACT AND PATENT. PATIENT TOLERATED CLEAR LIQUIDS FOR BREAKFAST. CALL LIGHT IN REACH. WILL CONTINUE TO MONITOR PATIENT.
[2019-02-13] MEDS ORDERED: NORCO 5-325 TA1 EACH PO (09:21)
[2019-02-13] MEDS: DEXTROSE 5%/LACTATED RINGERS 1,000 ML IV SCH (10:29)
[2019-02-13 11:57] VITALS: BP 143/72
--- NOTE | 2019-02-13 12:10 | NUR ---
REMOVED PATIENTS IV. CATHETER TIP INTACT AND PRESSURE DRESSING APPLIED.
--- NOTE | 2019-02-13 14:40 | NUR ---
PATIENT DISCHARGED FROM FACILITY. PATIENT GATHERED ALL PERSONAL BELONGINGS, DISCHARGE INSTRUCTIONS AND FOLLOW UP INFORMATION. LEFT UNIT IN WHEELCHAIR AND WENT HOME VIA PRIVATE AUTO. NO SIGNS OF DISTRESS WHEN LEAVING FACILITY.
[2019-02-18] MEDS ORDERED: ERGOCALCIFEROL 50,000 UNIT CAP PO SCH (09:00)
== END 2019-02-13 14:40 | disposition home or self-care (01) ==
LOC: OR 06:54 → PACU V 10:44 → IMCU 12:02
PROVIDERS: ADMIT Surgery; ATTEND Surgery
DX: K44.9 Diaphragmatic hernia without obstruction or gangrene (principal); K21.9 Gastro-esophageal reflux disease without esophagitis; I10 Essential (primary) hypertension; E78.00 Pure hypercholesterolemia, unspecified; K29.70 Gastritis, unspecified, without bleeding
CPT/HCPCS: 36415 ×2; 43280; 71046; 80048; 85025 ×2; 93005; G0378 ×2; J1100; J1885; J1956; J2001; J2250; J2270 ×2; J2405; J2704; J2765; J3010; J3490; J7121; J7512; J8610; S0164

== ENCOUNTER → 2024-07-30 | Outpatient (REF) | payer MEDICARE ==
[~2024-07-30] MED LIST changes: +CREON DR 12,001 EACH PO; +MYRBETRIQ25 MG PO; +NITROGLYCERIN0.4 MG SL; +NORCO 5-325 TA1 EACH PO; +VIT B12 INJ
[2024-07-30 11:22] LABS: BASOPHILS # (AUTO) 0.1 (0.0-0.1); BASOPHILS % 1.1 % (0.0-1.0); EOSINOPHILS # (AUTO) 0.7 (0.0-0.4); EOSINOPHILS % 10.3 % (0.0-6.0); HEMATOCRIT 38.5 % (34.2-44.1); HEMOGLOBIN 11.6 g/dL (12.0-16.0); LYMPHOCYTES # (AUTO) 1.7 (1.0-3.2); LYMPHOCYTES % 26.8 % (18.0-39.1); MEAN CORPUSCULAR HEMOGLOBIN 27.6 pg (28-32); MEAN CORPUSCULAR HGB CONC 30.1 g/dL (31-35); MEAN CORPUSCULAR VOLUME 91.4 fL (81-99); MONOCYTES # (AUTO) 0.7 (0.2-0.8); MONOCYTES % 10.8 % (4.4-11.3); NEUTROPHILS # (AUTO) 3.3 (2.1-6.9); NEUTROPHILS % 50.7 % (38.7-80.0); PLATELET COUNT 282 x10e3/uL (140-360); RED BLOOD COUNT 4.21 x10e6/uL (3.6-5.1); RED CELL DISTRIBUTION WIDTH 13.4 % (11.7-14.4)
[2024-08-08] MEDS: LACTATED RINGER'S 1,000 ML ONE (06:36)
== END | disposition home or self-care (01) ==
LOC: OR 05:00 → LAB 05:00 → OR 08-08 06:00 → EDSTATUS 08-08 10:00 → LAB 08-27 10:24
PROVIDERS: ATTEND Internal Medicine Gastroenterology
DX: Z12.11 Encounter for screening for malignant neoplasm of colon (principal); R12 Heartburn; Z88.0 Allergy status to penicillin; Z53.9 Procedure and treatment not carried out, unspecified reason
CPT/HCPCS: 36415; 85025; 93005